=== PATIENT | female | born 1970 | race African-American/Black ===

== ENCOUNTER 2020-11-02 01:50 | Emergency (ER) | payer SELFPAY ==
[2020-11-02 01:58] VITALS: BP 108/71; PULSE 58; RESP 17; TEMP 98.4
--- NOTE | 2020-11-02 02:05 | ED ---
Recheck HPI - General Chief Complaint: Recheck/Abnormal Lab/Rx Stated Complaint: Covid Test Time Seen by Provider: 11/02/20 01:52 Source: patient Mode of arrival: ambulatory - History of Present Illness Initial Comments: 49 year-old female patient for COVID-19 testing in order to cross border into [place]. She denies any symptoms or recent exposures. Denies need for further evaluation or testing. - Related Data Allergies Allergy/AdvReac Type Severity Reaction Status Date / Time No Known Allergies Allergy Verified 11/02/20 01:57 Review of Systems ROS Statement: Those systems with pertinent positive or pertinent negative responses have been documented in the HPI. ROS Other: All systems not noted in ROS Statement are negative. Past Medical History Past Medical History: No Reported History History of Any Multi-Drug Resistant Organisms: None Reported Past Surgical History: No Surgical Hx Reported Past Psychological History: No Psychological Hx Reported Smoking Status: Never smoker Past Alcohol Use History: None Reported Past Drug Use History: None Reported General Exam General appearance: alert, in no apparent distress Neurological exam: Present: alert, oriented X3 Psychiatric exam: Present: normal affect, normal mood Skin exam: Present: warm, dry, intact, normal color. Absent: rash Course Vital Signs 11/02/20 01:55 Temperature 98.4 F Pulse Rate 58 L Respiratory 17 Rate Blood Pressure 108/71 O2 Sat by Pulse 99 Oximetry Medical Decision Making - Medical Decision Making 49 year-old female patient presents to the emergency department for COVID testing in order to cross border into [place]. She tested negative. Provided with results. My attending is Dr. Flores. - Lab Data Lab Results 11/02/20 Range/Units 02:09 Coronavirus (PCR) Not Detected (Not Detectd) Disposition Clinical Impression: Encounter for laboratory testing for COVID-19 virus Disposition: HOME SELF-CARE Condition: Good Instructions (If sedation given, give patient instructions): Coronavirus Disease 2019 (COVID-19) Is patient prescribed a controlled substance at d/c from ED?: No Referrals: None,Stated [Primary Care Provider] - 1-2 days
== END 2020-11-02 02:53 | disposition home or self-care (01) ==
LOC: EC 01:50
DX: Z20.822 Contact with and (suspected) exposure to COVID-19 (principal)
CPT/HCPCS: 87635; 99283